=== PATIENT | male | born 1970 | race Caucasian/White ===

== ENCOUNTER 2023-10-24 05:37 | Emergency (ER) | payer BC, SELFPAY ==
[2023-10-24] VITALS (11 sets, daily range): BP systolic 136–176; BP diastolic 90–138
--- NOTE | 2023-10-24 06:08 | ED.GENMED ---
History of Present Illness
General
Chief Complaint: Blood Pressure Problem
Time Seen by Provider: 10/24/23 05:47
Travel History
Have you had any contact with someone who has COVID-19?: No
Do you have any symptoms of coronavirus? Fever > 100 degrees, chills, cough, shortness of breath, sore throat, loss of taste or smell, muscle aches, or headache?: No
History of Present Illness
History of Present Illness:
53-year-old male describing 3 nights of initially described as chest tightness intermittently. He then added or changed this to some palpitations or heart racing. Episodes would last 5 minutes to 45 minutes. With some nausea. No shortness of
breath no pleuritic pain asymptomatic currently. Last episode was at 4 or 430 this morning. Similar to episodes he had in February 2022. Patient stopped his valsartan about a year ago. Blood pressures have been running generally in the 140s
over 90 range. However blood pressure was more elevated this morning. Patient did a leg workout days ago with some unusual nausea however walked the treadmill yesterday for half an hour without issues
Past History
Past History
ED Past Medical History: Psychiatric (anxiety) and Other (Bipolar, hypertension, chronic neck pain, polycythemia, kidney stones, sleep apnea)
ED Past Surgical History: Orthopedic (Bilateral hip replacement)
Social History
Tobacco: Smoker
Alcohol: None
Drug: Former user
Personal:
Living: with family
Employment: Employed
Family History
Family History: Other (Mother with [place], no history of SAH)
Review of Systems
Review of Systems
All Other Systems: Not applicable
Constitutional: Denies fever
Respiratory: Denies cough
ABD/GI: Reports no symptoms
Phy Exam
Physical Exam
Physical Exam:
GENERAL: Alert and oriented in no apparent distress
EYE: Orbits normal.
NECK: Supple
CARDIAC: Regular rate and rhythm without any obvious murmurs.
LUNGS: Clear breath sounds,normal
ABDOMEN: Soft, without focal tenderness or distention
NEUROLOGICAL: Alert and oriented , grossly non-focal
SKIN: Warm and dry, no rash or lesion, no discoloration, skin intact.
MUSCULOSKELETAL: No edema,no deformity.Good color
PSYCH: Normal and appropriate interaction.
Course
Orders/Labs/Results
Orders:
Orders
10/24/23
Electrocardiogram (*1) Stat
Reason for Study: Chest Pain
Comment: DONE
10/24/23 05:45
ECG [Electrocardiogram (*1)] Urgent
Reason for Study: Hypertension, Benign
EKG- Treatment ONCE
10/24/23 05:47
Cardiac Monitoring- Treatment ONCE
IV Insert/Care/Rem.- Treatment PRN
10/24/23 06:02
Basic Metabolic Panel Urgent
Complete Blood Count/With Diff Urgent
D-Dimer Urgent
Troponin I Urgent
10/24/23 08:02
EKG- Treatment ONCE
10/24/23 08:03
Amlodipine [Norvasc] 10 mg PO NOW STA
10/24/23 09:02
Electrocardiogram (*1) Stat
Reason for Study: Other
Other Reason for Exam: chest pain
10/24/23 09:03
Troponin I Urgent
Abnormal Lab Results
10/24/23
06:02
RBC 6.59 H 10^6/uL
(4.70-6.10)
MCV 78.9 L fL
(80.0-94.0)
MCH 25.6 L pg
(27.0-31.0)
MCHC 32.5 L g/dL
(33.0-37.0)
RDW 16.5 H %
(11.5-14.5)
Abs Immat Gran (auto) 0.1 H 10^3/uL
(0-0.05)
Absolute Neuts (auto) 8.0 H 10^3/uL
(1.4-6.5)
Absolute Lymphs (auto) 0.7 L 10^3/uL
(1.2-3.4)
Absolute Monos (auto) 0.7 H 10^3/uL
(0.1-0.6)
Neutrophils % 83.1 H %
(42.2-75.2)
Lymphocytes % 6.8 L %
(20.5-51.1)
BUN 23 H mg/dl
(9-20)
Glucose 109 H mg/dl
(70-99)
Calcium 11.8 H mg/dl
(8.4-10.2)
10/24/23 06:02
10/24/23 06:02
Vital Signs
Initial and Last Documented VS:
Initial Vital Signs
Temp Pulse Resp BP Pulse Ox
98.9 F 75 16 176/104 97
10/24/23 05:39 10/24/23 05:39 10/24/23 05:39 10/24/23 05:39 10/24/23 05:39
Last Documented Vital Signs
Temp Pulse Resp BP Pulse Ox
98.9 F 76 13 136/90 96
10/24/23 05:39 10/24/23 10:15 10/24/23 10:15 10/24/23 10:00 10/24/23 10:00
MDM/Problems Addressed
Differential Diagnosis Includes:
Patient with intermittent nonexertional palpitations and chest tightness. Clearly not classic for cardiac but patient does have moderate risk factors including ex smoking hypertension. Polycythemia could be an added factor. Previous workup was
negative but he did have slight bump in his troponin and a negative stress test however as in many stress test there was some nonspecific questionable abnormalities. Workup in progress. In addition states he gets intermittent left calf pain or
swelling. Doubt DVT. Exam is normal however we will do a D-dimer as a screen
*Pulse Oximetry
Patient hypoxic: no
*EKG
Interpreted by ED Provider?: Yes
Interpretation: abnormal
Comparison EKG: changes noted
Heart Rate: 73
Rate: normal
Rhythm: sinus
[place]: normal axis
Interval: normal interval
QRS Pattern: normal QRS
Ischemia: non-specific ST changes
*Bush Regenerator Interpretation
Rate: normal
Interpretation: normal
Heart Rate: 74
Rhythm: sinus
*Critical Care Note
Total Time (30-74mins, 75-104mins- exclusive of procedures): Not Applicable
Data Reviewed
Review of Other/Old Records Reveals: Labs, Records, Testing (Stress test labs) and Discharge Summary
Update Note
Update Note:
Repeat EKG. Normal sinus rhythm 70 no acute changes.. EKGs and story reviewed with cardiology. Patient has remained medically stable and asymptomatic. Mostly complaining of heart racing at night. However with some risk factors warrants close
cardiac follow-up. Will start amlodipine 10 mg p.o.
ED Attending Note
-
Portions of this chart may have been created with voice recognition software.� Occasional wrong word or��sound alike� substitutions may have occurred due to the inherent limitations of voice recognition software.
Discharge Plan
Departure
Patient Disposition: Home (Routine Discharge)
Date of Disposition: 10/24/23
Time of Disposition: 10:16
Patient with high blood pressure during this ER visit?: Yes
Discharge Problem:
Heart palpitations, Chest pain
Instructions: Palpitations ED, Chest Pain CBC Follow Up, BLOOD PRESSURE
Prescriptions:
New
amlodipine 10 mg tablet
10 mg PO DAILY Qty: 30 0RF
No Action
buprenorphine-naloxone [Suboxone] 8-2 mg Film
0.5 film sublingual DAILY
Referrals:
Josh Haywood DO [Family Provider] - Follow up in 2-3 days
Activity Restrictions/Additional Instructions:
Follow-up closely with cardiology as we discussed. They should call you
Start the amlodipine. We gave you today's dose
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
Interventions
Interventions:
*Risk Screen - Suicide Last Done: 10/24/23 05:39
*General Assessment Last Done: 10/24/23 10:22
*Neglect/Abuse Screening Last Done: 10/24/23 05:39
*ED COVID-19 Vaccine History Last Done: 10/24/23 05:39
*Nursing Disposition Last Done: 10/24/23 10:22
ED- Cardiac Assessment Last Done: 10/24/23 06:06
ED- Neurological Assessment Last Done: 10/24/23 06:06
ED- Pulmonary Assessment Last Done: 10/24/23 06:06
Discharge Date and Time
Discharge Date/Time: 10/24/23 10:23
Print Language: NIUEAN
[2023-10-24 06:19] LABS: % Basophils 0.2 % (0-2); % Eosinophils 2.4 % (0-6); % Immature Granulocytes 0.5 % (0-0.5); % Lymphocytes 6.8 % (20.5-51.1); % Neutrophils 83.1 % (42.2-75.2); Absolute Eosinophils 0.2 10^3/uL (0-0.7); Absolute Immature Granulocytes 0.1 10^3/uL (0-0.05); Absolute Lymphocytes 0.7 10^3/uL (1.2-3.4); Absolute Monocytes 0.7 10^3/uL (0.1-0.6); Hemoglobin 16.9 g/dL (13.0-18.0); Mean Corp Hgb Conc. 32.5 g/dL (33.0-37.0); Mean Corpuscular Hgb 25.6 pg (27.0-31.0); Mean Corpuscular Volume 78.9 fL (80.0-94.0); Mean Platelet Volume 10.1 fL (7.4-10.4); Nucleated Red Blood Cells % 0 % (-); Platelet Count 321 10^3/uL (130-400); Red Blood Cell Count 6.59 10^6/uL (4.70-6.10); Red Cell Dist. Width 16.5 % (11.5-14.5); White Blood Cell Count 9.6 10^3/uL (4.8-10.8)
[2023-10-24 06:39] LABS: Blood Urea Nitrogen 23 mg/dl (9-20); Calcium 11.8 mg/dl (8.4-10.2); Carbon Dioxide 24 mmol/L (22-30); Chloride 105 mmol/L (98-107); Glucose 109 mg/dl (70-99); Potassium 4.9 mmol/L (3.5-5.1); Sodium 138 mmol/L (135-145); eGFR > 60.00
[2023-10-24 06:44] LABS: Troponin I 0.014 ng/ml
[2023-10-24 08:09] LABS: D-Dimer < 0.27 ug/mlFEU (0.00-0.50)
[2023-10-24] MEDS: NORVASC 10 MG PO (08:46)
[2023-10-24 09:33] LABS: Troponin I 0.015 ng/ml
== END 2023-10-24 10:23 | disposition home or self-care (01) ==
LOC: EMR 05:37
PROVIDERS: EMERGENCY PHYSICIAN Emergency Medicine; FAMILY PHYSICIAN Family Medicine
DX: R00.2 Palpitations (principal); R07.9 Chest pain, unspecified; R00.0 Tachycardia, unspecified; I10 Essential (primary) hypertension; F17.200 Nicotine dependence, unspecified, uncomplicated
CPT/HCPCS: 99284; 80048; 84484; 85025; 85379; 93005

== ENCOUNTER → 2023-11-27 15:00 | Outpatient (REF) | payer BC, SELFPAY | LOC: RCS 15:00 | PROVIDERS: ATTENDING PHYSICIAN Nurse Practitioner; FAMILY PHYSICIAN Family Medicine | DX: I10 Essential (primary) hypertension (principal); I47.10 Supraventricular tachycardia, unspecified; I51.7 Cardiomegaly | CPT/HCPCS: 93306 ==

== ENCOUNTER → 2024-07-10 16:08 | Outpatient (REF) | payer BC, SELFPAY | LOC: RAD 16:08 | PROVIDERS: ATTENDING PHYSICIAN Family Medicine | DX: M25.511 Pain in right shoulder (principal) | CPT/HCPCS: 73030 ==

== ENCOUNTER 2025-02-01 16:48 | Emergency (ER) | payer BC, SELFPAY ==
[2025-02-01 16:55] VITALS: BP 177/115
--- NOTE | 2025-02-01 17:11 | ED.GENMED ---
ED Provider Triage
-
Patient seen by provider in Triage?: Seen in Triage
Attestation: A medical screening examination has been initiated by a qualified medical provider. Based on the assessment performed at this time, it has been determined that an emergent medical condition may exist and the patient has been informed
that further medical evaluation and possible additional diagnostic testing may be needed.
HPI: 54yoM mostly right handed but slightly ambidextrous. Doing biceps curls with a bar just prior to arrival when he felt a snap in the L bicep muscle. Concerned for tendon rupture.
GENERAL: Alert , in no apparent distress
EYE: No visual abnormalities.
NECK: Trachea midline
ENT: No visible abnormalities.
LUNGS: No acute respiratory distress
NEUROLOGICAL: Alert and oriented
SKIN: Skin intact. No visible changes.
MUSCULOSKELETAL: Defect noted to distal biceps tendon.
PSYCH: Normal and appropriate interaction.
This is a medical evaluation conducted in person to initiate diagnostic evaluation and provide initial therapeutics. Please see further documentation by the treating clinician.
X-rays of L humerus/elbow ordered.
History of Present Illness
General
Chief Complaint: Musculo-Skeletal Complaint
History of Present Illness
History of Present Illness:
See triage note
Past History
Past History
ED Past Medical History: Psychiatric (anxiety) and Other (Bipolar, hypertension, chronic neck pain, polycythemia, kidney stones, sleep apnea)
ED Past Surgical History: Orthopedic (Bilateral hip replacement)
Social History
Tobacco: Smoker
Alcohol: None
Drug: Former user
Personal:
Living: with family
Employment: Employed
Family History
Family History: Other (Mother with [place], no history of SAH)
Phy Exam
Physical Exam
Physical Exam:
See triage note
Course
Orders/Labs/Results
Orders:
Orders
02/01/25 17:10
CR Elbow - Left Min 3 Views Urgent
Comment:
Reason For Exam: injury
CR Humerus - Left Min 2 Views* Urgent
Comment:
Reason For Exam: injury
Vital Signs
Initial and Last Documented VS:
Initial Vital Signs
Temp Pulse Resp BP Pulse Ox
98.0 F 72 16 177/115 98
02/01/25 16:55 02/01/25 16:55 02/01/25 16:55 02/01/25 16:55 02/01/25 16:55
Last Documented Vital Signs
Temp Pulse Resp BP Pulse Ox
98.0 F 72 16 177/115 98
02/01/25 16:55 02/01/25 16:55 02/01/25 16:55 02/01/25 16:55 02/01/25 17:12
*Pulse Oximetry
SaO2: 98
Oxygen Mode of Delivery: Room air
Patient hypoxic: no (98%)
*Critical Care Note
Total Time (30-74mins, 75-104mins- exclusive of procedures): Not Applicable
Update Note
Update Note:
Patient left AMA from department after triage assessment.
ED Attending Note
-
Portions of this chart may have been created with voice recognition software.� Occasional wrong word or��sound alike� substitutions may have occurred due to the inherent limitations of voice recognition software.
Discharge Plan
Departure
Prescriptions:
No Action
buprenorphine-naloxone [Suboxone] 8-2 mg Film
0.5 film sublingual DAILY
amlodipine 10 mg tablet
10 mg PO DAILY Qty: 30 0RF
Interventions
Interventions:
*Risk Screen - Suicide Last Done: 02/01/25 16:55
*General Assessment Last Done: 02/01/25 16:55
*Nursing Disposition Last Done: 02/01/25 18:16
Discharge Date and Time
Print Language: [place]
== END 2025-02-01 18:16 | disposition left against medical advice (07) ==
LOC: EMR 16:48
PROVIDERS: EMERGENCY PHYSICIAN Emergency Medicine
DX: S46.202A Unspecified injury of muscle, fascia and tendon of other parts of biceps, left arm, initial encounter (principal); X58.XXXA Exposure to other specified factors, initial encounter; Y93.B9 Activity, other involving muscle strengthening exercises; F17.200 Nicotine dependence, unspecified, uncomplicated; G89.29 Other chronic pain; I10 Essential (primary) hypertension; Z53.29 Procedure and treatment not carried out because of patient's decision for other reasons
CPT/HCPCS: 99283; 73060; 73080

== ENCOUNTER 2025-05-24 08:19 | Emergency (ER) | payer BC, SELFPAY ==
[2025-05-24] VITALS (13 sets, daily range): BP systolic 116–176; BP diastolic 70–120; PULSE 90; BMI 34.1
--- NOTE | 2025-05-24 09:03 | ED.GENMED ---
History of Present Illness
<Mariaa Barker PA-C - Last Filed: 05/24/25 20:11>
General
Chief Complaint: Fainting Sensation
Source: patient
Exam Limitations: none
Time Seen by Provider: 05/24/25 08:36
History of Present Illness
History of Present Illness:
54yoM with a history of hypertension and prior substance use on Suboxone presenting for evaluation of dizziness. Patient was standing at work around 7:30 AM this morning and was speaking to a coworker. He suddenly became dizzy which he describes
as feeling like he is going to pass out and his heart started to race. Dizziness has been intermittent since symptoms began. In addition to the lightheadedness, he also feels like the room is spinning at times. He is experiencing shortness of
breath as well and developed some L sided chest discomfort during initial exam. No syncope. Of note, patient returned home from [place] yesterday. He went to an ED in [place] 2 days ago for L calf pain and had a venous duplex that
was reportedly negative. Last echocardiogram in November 2023 which was normal with EF of 60%.
Past History
<Mariaa Barker PA-C - Last Filed: 05/24/25 20:11>
Past History
ED Past Medical History: Psychiatric (anxiety) and Other (Bipolar, hypertension, chronic neck pain, polycythemia, kidney stones, sleep apnea)
ED Past Surgical History: Orthopedic (Bilateral hip replacement)
Social History
Tobacco: Smoker
Alcohol: None
Drug: Former user
Personal:
Living: with family
Employment: Employed
Family History
Family History: Other (Mother with [place], no history of SAH)
Phy Exam
<Mariaa Barker PA-C - Last Filed: 05/24/25 20:11>
General Physical Exam
General Presentation: well appearing and no apparent distress
General Skin: warm
General Habitus: normal
General Mental: alert
ENT Exam
ENT Exam: normocephalic
Cardiovascular Exam
Cardiovascular Exam: regular rate/rhythm, no murmur, normal peripheral pulses (2+ radial and PT pulses bilaterally) and other (1-2+ pitting edema to LLE)
Pulmonary Exam
Pulmonary Exam: lungs clear, no respiratory distress, no rales, no crackles, no rhonchi, no wheezing and other (Patient complaining of dizziness while taking deep breaths)
Neurological Exam
Neurological Exam: alert
[place] Coma Scale
Eye Opening: Spontaneous
Verbal Response: Oriented
Motor Response: Obeys Commands
GCS Total Score: 15
Skin Exam
Skin Exam: normal color and warm/dry
Psychiatric Exam
Psychiatric Exam: normal mood/affect
<Heather Montano PA-C - Last Filed: 05/24/25 20:09>
[place] Coma Scale
GCS Total Score: 15
Course
<Mariaa Barker PA-C - Last Filed: 05/24/25 20:11>
Orders/Labs/Results
Orders:
Orders
05/24/25 08:35
Electrocardiogram (*1) Urgent
Reason for Study: Vertigo / Dizzy
05/24/25 08:36
EKG- Treatment ONCE
05/24/25 08:45
Orthostatic VS- Treatment ONCE
Orthostatic Vital Signs As Directed
Orthostatic VS Frequency: Now
05/24/25 08:58
CMP [Comprehensive Metabolic Panel] Urgent
Complete Blood Count/With Diff Urgent
Magnesium Urgent
Comment: ADD ON
TSH Urgent
Comment: ADD ON
Troponin I Urgent
05/24/25 09:00
D-Dimer Urgent
05/24/25 09:01
Cardiac Monitoring- Treatment ONCE
05/24/25 09:12
Add On- LAB Urgent
Tests Added?: magnesium, TSH
05/24/25 09:42
EKG- Treatment ONCE
05/24/25 10:01
CT Chest PE Study Urgent
Comment:
Reason For Exam: chest pain, SOB
05/24/25 10:06
CT Head W/o Iv Contrast Urgent
Comment:
Reason For Exam: dizziness
05/24/25 12:00
Electrocardiogram (*1) Urgent
Reason for Study: Chest Pain
05/24/25 12:29
Troponin I Urgent
05/24/25 13:40
CARDIOLOGY CONSULT Urgent
Consulting Provider: Andrea Aguilar
Was physician already notified: Yes
05/24/25 15:38
Echo 2D MMode Color/Doppler Routine
Reason for Study: dizziness, SOB, near-syncope
Abnormal Lab Results
05/24/25 05/24/25
08:58 09:00
RBC 6.56 H 10^6/uL
(4.70-6.10)
MCV 77.4 L fL
(80.0-94.0)
MCH 23.8 L pg
(27.0-31.0)
MCHC 30.7 L g/dL
(33.0-37.0)
RDW 16.5 H %
(11.5-14.5)
Absolute Lymphs (auto) 1.0 L 10^3/uL
(1.2-3.4)
Neutrophils % 76.7 H %
(42.2-75.2)
Lymphocytes % 13.3 L %
(20.5-51.1)
D-Dimer 0.55 H ug/mlFEU
(0.00-0.50)
Glucose 132 H mg/dl
(70-99)
05/24/25 08:58
05/24/25 08:58
Vital Signs
Initial and Last Documented VS:
Initial Vital Signs
Temp Pulse Resp BP Pulse Ox
98.0 F 116 18 176/120 99
05/24/25 08:32 05/24/25 08:32 05/24/25 08:32 05/24/25 08:32 05/24/25 08:32
Last Documented Vital Signs
Temp Pulse Resp BP Pulse Ox
98.0 F 81 10 130/70 96
05/24/25 08:32 05/24/25 18:05 05/24/25 16:00 05/24/25 18:05 05/24/25 10:00
<Heather Montano PA-C - Last Filed: 05/24/25 20:09>
Orders/Labs/Results
Orders:
Orders
05/24/25 08:35
Electrocardiogram (*1) Urgent
Reason for Study: Vertigo / Dizzy
05/24/25 08:36
EKG- Treatment ONCE
05/24/25 08:45
Orthostatic VS- Treatment ONCE
Orthostatic Vital Signs As Directed
Orthostatic VS Frequency: Now
05/24/25 08:58
CMP [Comprehensive Metabolic Panel] Urgent
Complete Blood Count/With Diff Urgent
Magnesium Urgent
Comment: ADD ON
TSH Urgent
Comment: ADD ON
Troponin I Urgent
05/24/25 09:00
D-Dimer Urgent
05/24/25 09:01
Cardiac Monitoring- Treatment ONCE
05/24/25 09:12
Add On- LAB Urgent
Tests Added?: magnesium, TSH
05/24/25 09:42
EKG- Treatment ONCE
05/24/25 10:01
CT Chest PE Study Urgent
Comment:
Reason For Exam: chest pain, SOB
05/24/25 10:06
CT Head W/o Iv Contrast Urgent
Comment:
Reason For Exam: dizziness
05/24/25 12:00
Electrocardiogram (*1) Urgent
Reason for Study: Chest Pain
05/24/25 12:29
Troponin I Urgent
05/24/25 13:40
CARDIOLOGY CONSULT Urgent
Consulting Provider: Andrea Aguilar
Was physician already notified: Yes
05/24/25 15:38
Echo 2D MMode Color/Doppler Routine
Reason for Study: dizziness, SOB, near-syncope
Abnormal Lab Results
05/24/25 05/24/25
08:58 09:00
RBC 6.56 H 10^6/uL
(4.70-6.10)
MCV 77.4 L fL
(80.0-94.0)
MCH 23.8 L pg
(27.0-31.0)
MCHC 30.7 L g/dL
(33.0-37.0)
RDW 16.5 H %
(11.5-14.5)
Absolute Lymphs (auto) 1.0 L 10^3/uL
(1.2-3.4)
Neutrophils % 76.7 H %
(42.2-75.2)
Lymphocytes % 13.3 L %
(20.5-51.1)
D-Dimer 0.55 H ug/mlFEU
(0.00-0.50)
Glucose 132 H mg/dl
(70-99)
05/24/25 08:58
05/24/25 08:58
Vital Signs
Initial and Last Documented VS:
Initial Vital Signs
Temp Pulse Resp BP Pulse Ox
98.0 F 116 18 176/120 99
05/24/25 08:32 05/24/25 08:32 05/24/25 08:32 05/24/25 08:32 05/24/25 08:32
Last Documented Vital Signs
Temp Pulse Resp BP Pulse Ox
98.0 F 81 10 130/70 96
05/24/25 08:32 05/24/25 18:05 05/24/25 16:00 05/24/25 18:05 05/24/25 10:00
<Mariaa Barker PA-C - Last Filed: 05/24/25 20:11>
MDM/Problems Addressed
Differential Diagnosis Includes:
54yoM here with dizziness, SOB, and palpitations that began this AM. Also had L sided chest discomfort during exam. He was hypertensive in triage and tachycardic to 116 in triage. Exam reassuring. Differential diagnosis includes: arrhythmia, ACS,
PE, vertigo
Initial ED plan: Triage EKG shows nonspecific ST changes in inferolateral leads. Nonspecific changes in inferior leads also present on prior EKG. Will check cardiac labs, TSH, D-dimer, CT head, and CXR vs. CTA chest depending on D-dimer results.
Final assessment: Initial troponin 0.034. D-dimer elevated and CTA chest subsequently ordered which is negative for PE but shows coronary artery calcification of the LAD. Repeat troponin decreased to 0.032. Case discussed with cardiology who
evaluated patient at bedside. Echocardiogram ordered. If this is normal, patient may be discharged from a cardiac standpoint with plan for outpatient stress test. No telemetry events noted throughout ED stay. Case signed out to Ashtyn Montano PA-C
awaiting echo results.
<Mariaa Barker PA-C - Last Filed: 05/24/25 20:11>
*Pulse Oximetry
SaO2: 98
Oxygen Mode of Delivery: Room air
*EKG
Interpreted by ED Provider?: Yes
EKG Intrepretation Date: 05/24/25
Heart Rate: 88
Rate: normal
Rhythm: sinus
[place]: normal axis
Interval: normal interval
QRS Pattern: normal QRS
Ischemia: non-specific ST changes (inferolateral leads)
<Heather Montano PA-C - Last Filed: 05/24/25 20:09>
*Pulse Oximetry
Patient hypoxic: no (96)
*Critical Care Note
Total Time (30-74mins, 75-104mins- exclusive of procedures): Not Applicable
<Heather GARIMA Montano - Last Filed: 05/24/25 20:09>
Update Note
Update Note:
Received patient in signout at 1700. Patient was seen by cardiology and ordered an echocardiogram. The disposition was based off of the echo. It was read by the cocktail waitress as normal. I spoke with the cocktail waitress Dr. Dax sánchez who said the
patient could be discharged for outpatient follow-up. He feels well enough to go home, I briefly met him, stable vital signs
ED Attending Note
<Mariaa Barker PA-C - Last Filed: 05/24/25 20:11>
-
Portions of this chart may have been created with voice recognition software.� Occasional wrong word or��sound alike� substitutions may have occurred due to the inherent limitations of voice recognition software.
Discharge Plan
Departure
Patient Disposition: Home (Routine Discharge)
Date of Disposition: 05/24/25
Time of Disposition: 18:04
Patient with high blood pressure during this ER visit?: No
Discharge Problem:
Dizziness, Heart palpitations
Instructions: Dizziness
Prescriptions:
No Action
buprenorphine-naloxone [Suboxone] 8-2 mg Film
1 film sublingual DAILY
Referrals:
Andrea Aguilar MD [Active, Cardiology]
Josh Haywood DO [Family Provider, Family Practice]
Activity Restrictions/Additional Instructions:
Please follow-up with your family doctor and cardiology. Cardiology is recommending an outpatient stress test for further evaluation of your symptoms.
Return to the ER immediately with any new or worsening symptoms.
Interventions
Interventions:
*Risk Screen - Suicide Last Done: 05/24/25 08:32
*General Assessment Last Done: 05/24/25 08:32
*Neglect/Abuse Screening Last Done: 05/24/25 08:32
*ED- Fall Risk Assessment Last Done: 05/24/25 18:10
*ED COVID-19 Vaccine History Last Done: 05/24/25 08:43
*ED Influenza Vaccine History Last Done: 05/24/25 08:43
*Nursing Disposition Last Done: 05/24/25 18:10
ED- Cardiac Assessment Last Done: 05/24/25 08:51
ED- Neurological Assessment Last Done: 05/24/25 08:51
ED Swallowing Screen Last Done: 05/24/25 08:51
Discharge Date and Time
Discharge Date/Time: 05/24/25 18:15
Print Language: [place]UST[place]
[2025-05-24 09:11] LABS: Hematocrit 50.8 % (39.0-52.0); Hemoglobin 15.6 g/dL (13.0-18.0); Mean Corp Hgb Conc. 30.7 g/dL (33.0-37.0); Mean Corpuscular Volume 77.4 fL (80.0-94.0); Nucleated Red Blood Cells % 0 % (-); Platelet Count 249 10^3/uL (130-400); Red Cell Dist. Width 16.5 % (11.5-14.5)
[2025-05-24 09:26] LABS: ALT (SGPT) 39 U/L (0-50); AST (SGOT) 31 U/L (17-59); Albumin 4.5 g/dl (3.5-5.0); Alkaline Phosphatase 41 U/L (38-126); Blood Urea Nitrogen 11 mg/dl (9-20); Calcium 9.7 mg/dl (8.4-10.2); Carbon Dioxide 28 mmol/L (22-30); Chloride 102 mmol/L (98-107); Estimated Creatinine Clearance 107 ml/min; Glucose 132 mg/dl (70-99); Potassium 4.0 mmol/L (3.5-5.1); Sodium 136 mmol/L (135-145); Total Protein 6.9 g/dl (6.3-8.2); eGFR > 60.00
[2025-05-24 09:37] LABS: Troponin I 0.034 ng/ml
[2025-05-24 09:51] LABS: Magnesium 1.6 mg/dl (1.6-2.3)
[2025-05-24 09:56] LABS: D-Dimer 0.55 ug/mlFEU (0.00-0.50)
[2025-05-24 10:43] LABS: TSH 1.10 uIU/ml (0.47-4.68)
[2025-05-24 13:19] LABS: Troponin I 0.032 ng/ml
--- NOTE | 2025-05-24 14:45 | CON.CAR ---
Addendum entered and electronically signed by Andrea Aguilar MD 05/24/25 16:16:
I reviewed and agree with the note by SORAYA and it accurately reflects our care.
I saw and evaluated the patient, and I provided the substantive portion of the medical decision making. My assessment and plan is below:
54-year-old man with hypertension, SVT, AT, hypertension, LARISA, and hematologic disorder/polycythemia who presents with dizziness and lightheadedness. He says that this morning at work he was standing and talking to a friend when he outside and felt
like he was going to pass out. He thought this was because he had not eaten so he ate something but still did not feel better. Symptoms persisted for 20-25 minutes so he decided to drive himself to the ER. Symptoms finally started to improve when
he got into the ER room and was hooked up to the monitor. He still feels mildly lightheadedness but it has improved. He also has occasional room spinning and symptoms of palpitations. Dizziness is worse when he nods his head. He denies chest
pain, pressure, or discomfort. He exercises regularly and has no anginal symptoms.
Physical exam: RRR, no murmurs, no lower extremity edema, clear lungs
Labs notable for troponin 0.034 -> 0.032, creatinine 0.9
ECG: NSR, nonspecific ST�T wave abnormality
Dizziness/lightheadedness: His symptoms do not seem consistent with cardiac etiology. He has had no arrhythmias on telemetry despite having dizziness while here. His symptoms are positional and he has some room spinning sensation. Could be BPPV.
We will check an echocardiogram to rule out structural heart disease. If this is normal, I do not feel that he needs to be admitted from a cardiac standpoint. He should have an outpatient stress test.
Original Note:
Consultation
Consultation Request
Date/Time Consultation Requested: 05/24/25 1340
Date/Time Consultation Performed: 05/24/25 1420
Requesting Provider: Mariaa Barker
Performing Provider: Teresa LIRA for Dr. Aguilar
Reason for Consultation: SOB, dizziness, palpitations
Medical History
-
Chief Complaint: SOB, dizziness, palpitations
History of Present Illness:
54 y/o male with hypertension, SVT, AT, hypertension, LARISA, hematologic disorder/polycythemia (gets phlebotomies with Dr. Ramos), and history of substance use disorder on Suboxone is here for evaluation of light-headedness/dizziness/near syncope with
associated SOB and palpitations. It was while he was standing at work today. Lasted about 30 mins. Sitting actually made it worse. He did not pass out. He felt dizzy in the ER as well. When I was talking to him, he felt dizzy at times and was worse
with head movements. However, he does not describe the room as spinning. He has no CP. He works out regularly (cardio and stretching) and feels well doing so without CP. Of note, he stopped his BP med- amlodipine for LE edema, and valsartan he
thinks for fatigue. Of note, he reports left leg pain last week in [place] and he went to a hospital and had u/s and reports negative for DVT. He did have a head CT here that was negative and a chest CT negative for PE, but did report
coronary artery calcification involving the LAD. He is in no distress at the time of my assessment.
Past Medical History
Past Medical History: Arrhythmias, HTN and Other (as above)
Social History
Tobacco: Smoker
Alcohol: None
Drug: None
Personal:
Living: With Family
Employment: Employed
Family History
Family History: Reviewed & Not Pertinent
Allergies / Home Medications
Allergy/AdvReac Type Severity Reaction Status Date / Time
No Known Allergies Allergy Verified 05/24/25 08:32
�Medication �Instructions �Recorded �Confirmed �Type
buprenorphine 8 mg-naloxone 2 mg 1 film sublingual DAILY 02/28/22 05/24/25 History
sublingual film (Suboxone)
Review of Systems
-
History Source: Patient
All other systems: Negative unless noted
Respiratory: Trouble Breathing
Abdomen/GI: Nausea
Neurological: Dizzy
Physical Exam
Vital Signs
Temp Pulse Resp BP Pulse Ox
98.0 F 63 13 131/86 96
05/24/25 08:32 05/24/25 14:00 05/24/25 14:00 05/24/25 14:00 05/24/25 10:00
Lab Results
05/24/25 08:58
05/24/25 08:58
Troponin I 0.032 ng/ml 05/24/25 12:29
Physical Exam
General: Well Developed, Well Nourished and No Apparent Distress
HEENT: Normocephalic and Anicteric
Respiratory: Clear and Non Labored Respirations
Cardiac: Regular Rhythm
Musculoskeletal: Edema (trace BLE edema )
Skin: Warm and Dry
Neuro: AO x 3
Psych: Calm
Impression / Plan
-
Dizziness/near-syncope/palpitations/SOB:
-as described in HPI. Interestingly, dizziness seems to be worse with change in head position, but no room spinning reported.
-Tele is all sinus, BP elevated on arrival, but now improved without intervention.
-EKG shows non-specific T abnormality, troponin 0.034. He denies any CP. He did have SOB as noted, but is not SOB currently. Will check echo in ER.
HTN:
-stopped meds on his own due to side effects -per OP chart, ARB and CCB were medications that he was on in the past
-elevated on arrival, but currently 117/81 without meds- needs monitoring and add meds if needed
pSVT:
-not on meds as OP
-telemetry is stable
Data:
Chest CT: Examination is negative for pulmonary embolism. Coronary artery calcification involving the LAD. Please correlate with symptoms of and risk factors for coronary artery disease, with further workup as clinically appropriate. Mild dependent
atelectasis within the posterior lungs. Hepatic cysts as described. Left renal cysts.
Head CT: No acute intracranial abnormality noted.
Data Reviewed
-
EKG: Tracing Personally Visualized and interpreted (NSR 63 BPM, nonspecific T wave abnormality)
CT Scan: Report Reviewed by me (as noted head and chest)
Medical Tests (Nuc Med, Echo etc): Report Reviewed by me (echo 11/27/23: Normal biventricular size and systolic function without regional wall motion abnormality. Mild concentric left ventricular hypertrophy. No significant valvular disease. )
Labs: Labs Reviewed by me
== END 2025-05-24 18:15 | disposition home or self-care (01) ==
LOC: EMR 08:19
PROVIDERS: Physician Assistant; CONSULT PHYSICIAN Student in an Organized Health Care Education/Training Program; EMERGENCY PHYSICIAN Student in an Organized Health Care Education/Training Program; FAMILY PHYSICIAN Family Medicine
DX: R42 Dizziness and giddiness (principal); R00.2 Palpitations; I25.10 Atherosclerotic heart disease of native coronary artery without angina pectoris; I10 Essential (primary) hypertension; G47.33 Obstructive sleep apnea (adult) (pediatric); D75.1 Secondary polycythemia; F31.9 Bipolar disorder, unspecified; F41.9 Anxiety disorder, unspecified; M54.2 Cervicalgia; G89.29 Other chronic pain; F17.200 Nicotine dependence, unspecified, uncomplicated; T46.1X6A Underdosing of calcium-channel blockers, initial encounter; T46.5X6A Underdosing of other antihypertensive drugs, initial encounter; Z91.128 Patient's intentional underdosing of medication regimen for other reason; Z96.643 Presence of artificial hip joint, bilateral; Z82.49 Family history of ischemic heart disease and other diseases of the circulatory system
CPT/HCPCS: 99284; 70450; 71275; 80053; 83735; 84443; 84484; 85025; 85379; 93005; 93306; Q9967